=== PATIENT | female | born 1995 | race Caucasian/White ===

== ENCOUNTER 2016-09-07 20:42 | Emergency (ER) | payer MEDICAID, OTHER ==
[~2016-09-07] VITALS: Ht 162.6 cm; Wt 65.4 kg
[2016-09-07] MEDS ORDERED: METOCLOPRAMIDE 5 MG/ML, 2ML IVPush ONE (21:30)
[2016-09-07] MEDS ORDERED: SODIUM CHLORIDE 0.9% 1,000ML IVBOLUS ONE (21:30)
[2016-09-07] MEDS ORDERED: DIPHENHYDRAMINE 50 MG/ML, 1ML IVPush ONE (21:30)
[2016-09-07] MEDS ORDERED: METOCLOPRAMIDE 5 MG/ML, 2ML ONE (21:34)
[2016-09-07] MEDS ORDERED: DIPHENHYDRAMINE 50 MG/ML, 1ML ONE (21:35)
[2016-09-07 22:11] LABS: PATH.CAST-FLAG NOT PRESENT; SPERM-FLAG NOT PRESENT; SRC-FLAG NOT PRESENT; XTAL-FLAG NOT PRESENT; YLC-FLAG NOT PRESENT
[2016-09-07] MEDS ORDERED: CEFTRIAXONE PMX 1GM/50ML 50 ML IV ONE (23:00)
[2016-09-07] MEDS ORDERED: CEFTRIAXONE PMX 1GM/50ML 50 ML ONE (23:01)
[2016-09-07] MEDS ORDERED: morphine SULFATE 10 MG/ML, 1ML IVPush ONE (23:30)
[2016-09-07] MEDS ORDERED: MORPHINE SULFATE 4 MG/ML, 1ML ONE (23:36)
[2016-09-08 01:23] VITALS: BP 110/71
== END 2016-09-08 01:25 | disposition home or self-care (01) ==
LOC: ED 23:17
DX: O99.352 Diseases of the nervous system complicating pregnancy, second trimester (principal); G43.009 Migraine without aura, not intractable, without status migrainosus; O23.12 Infections of bladder in pregnancy, second trimester; Z3A.17 17 weeks gestation of pregnancy
CPT/HCPCS: 81001; 87077; 87086; 87186; 96361; 96365; 96366; 96375; 99285; J0696; J1200; J2270; J2765; J7030

== ENCOUNTER 2016-11-02 16:37 | Emergency (ER) | payer OTHER ==
[~2016-11-02] VITALS: Ht 162.6 cm; Wt 68.2 kg
[2016-11-02 16:56] VITALS: BP 118/77
[2016-11-02] MEDS ORDERED: ACETAMINOPHEN 325 MG TABLET ONE (17:13)
[2016-11-02] MEDS ORDERED: ACETAMINOPHEN 325 MG TABLET PO ONE (17:30)
[2016-11-02] MEDS ORDERED: KETOROLAC 30 MG/1 ML IM ONE (17:30)
== END 2016-11-02 18:28 | disposition home or self-care (01) ==
LOC: ED 17:47
DX: O26.892 Other specified pregnancy related conditions, second trimester (principal); M54.42 Lumbago with sciatica, left side; Z88.5 Allergy status to narcotic agent; Z88.1 Allergy status to other antibiotic agents; Z3A.25 25 weeks gestation of pregnancy
CPT/HCPCS: 81001; 87086; 99284

== ENCOUNTER 2016-11-13 23:01 | Outpatient (CLI) | payer OTHER ==
[~2016-11-13] VITALS: Ht 162.6 cm; Wt 69.0 kg
== END 2016-11-14 01:10 | disposition home or self-care (01) ==
LOC: LDOP 23:01
PROVIDERS: ATTEND Student in an Organized Health Care Education/Training Program
DX: O26.892 Other specified pregnancy related conditions, second trimester (principal); O99.342 Other mental disorders complicating pregnancy, second trimester; F32.9 Major depressive disorder, single episode, unspecified; R10.9 Unspecified abdominal pain; M54.9 Dorsalgia, unspecified; Z3A.27 27 weeks gestation of pregnancy
CPT/HCPCS: 36415; 59025; 81003; 82731; 87086; 99211; G0463

== ENCOUNTER 2016-12-12 14:55 | Outpatient (CLI) | payer OTHER ==
[~2016-12-12] VITALS: Ht 162.6 cm; Wt 71.4 kg
[2016-12-12 15:45] VITALS: BP 128/78
[2016-12-12] MEDS ORDERED: TERBUTALINE 1 MG/ML, 1ML ONE (17:44)
[2016-12-12] MEDS ORDERED: TERBUTALINE 1 MG/ML, 1ML SQ ONE (18:00)
== END 2016-12-12 18:15 | disposition home or self-care (01) ==
LOC: LDOP 14:55
PROVIDERS: ATTEND Obstetrics & Gynecology
DX: O26.893 Other specified pregnancy related conditions, third trimester (principal); O99.343 Other mental disorders complicating pregnancy, third trimester; F32.9 Major depressive disorder, single episode, unspecified; R10.9 Unspecified abdominal pain; Z3A.30 30 weeks gestation of pregnancy
CPT/HCPCS: 36415; 59025; 81003; 82731; 96372; 99211; J3105; 87086; G0463

== ENCOUNTER 2018-04-25 21:57 | Emergency (ER) | payer OTHER ==
[~2018-04-25] VITALS: Ht 162.6 cm; Wt 63.9 kg
[~2018-04-25 21:57] MED LIST: IRON; PRENATAL VITAMIN; SENN1TAB67 PO
[2018-04-25 22:31] LABS: BASOPHILS # (AUTO) 0.04 x10^3/uL (0-0.1); BASOPHILS % (AUTO) 1 % (0-1); EOSINOPHILS # (AUTO) 0.07 x10^3/uL (0-0.4); EOSINOPHILS % (AUTO) 1 % (1-7); LYMPHOCYTES # (AUTO) 1.69 x10^3/uL (1-3.4); LYMPHOCYTES % (AUTO) 23 % (22-44); MD NO; MEAN CORPUSCULAR HEMOGLOBIN 29.5 pg (27.0-34.8); MEAN CORPUSCULAR HGB CONC 34.1 g/dL (32.4-35.8); MEAN CORPUSCULAR VOLUME 86.4 fL (80-100); MEAN PLATELET VOLUME 8.3 fL (7.4-10.4); MONOCYTES # (AUTO) 0.42 x10^3/uL (0.2-0.8); MONOCYTES % (AUTO) 6 % (2-9); NEUTROPHILS # (AUTO) 5.18 x10^3/uL (1.8-6.8); NEUTROPHILS % (AUTO) 70 % (42-75); PLATELET COUNT 349 x10^3/uL (130-400); RED BLOOD COUNT 4.59 x10^6/uL (3.82-5.3); RED CELL DISTRIBUTION WIDTH 14.1 % (9.6-15.2)
[2018-04-25 22:37] LABS: ALANINE AMINOTRANSFERASE 20 U/L (12-78); ALBUMIN 4.4 g/dL (3.4-5.0); ANION GAP 5 mmol/L (5-15); CHLORIDE 108 mmol/L (98-107); CREATININE 0.74 mg/dL (0.55-1.02)
[2018-04-25 22:42] LABS: ALKALINE PHOSPHATASE 85 U/L (45-117); BILIRUBIN,TOTAL 0.6 mg/dL (0.2-1.0); TOTAL PROTEIN 8.5 g/dL (6.4-8.2)
--- NOTE | 2018-04-25 22:59 | NUR ---
PT IN [place].
--- NOTE | 2018-04-25 23:52 | NUR ---
PT HERE FOR INCREASING ABD PAIN. PT HAS HX OF OVARIAN CYSTS. PAIN HAS BEEN CONSTANT FOR 2 DAYS 08/11. AT BEDSIDE, UA SENT TO LAB.
[2018-04-25 23:55] LABS: MICROSCOPIC AUTO
[2018-04-26] LABS: CULTURE INDICATED? YES
[2018-04-26] MEDS ORDERED: ONDANSETRON ODT 4 MG PO ONE
[2018-04-26] MEDS ORDERED: KETOROLAC 30 MG/1 ML IM ONE
[2018-04-26] MEDS ORDERED: HYDROcodone/APAP 5/325 TABLET PO ONE
[2018-04-26] MEDS ORDERED: ONDANSETRON ODT 4 MG ONE (00:01)
[2018-04-26] MEDS ORDERED: KETOROLAC 30 MG/1 ML ONE (00:01)
[2018-04-26] MEDS ORDERED: HYDROcodone/APAP 5/325 TABLET ONE (00:02)
--- NOTE | 2018-04-26 00:10 | NUR ---
PT MEDICATED FOR PAIN. VSS. CALL LIGHT IN REACH
[2018-04-26 00:11] VITALS: BP 126/63
--- NOTE | 2018-04-26 00:45 | NUR ---
Patient given discharge instructions and they have confirmed that they understand the instructions. Patient ambulatory with steady gait.
== END 2018-04-26 00:47 | disposition home or self-care (01) ==
LOC: ED 23:08
DX: N30.01 Acute cystitis with hematuria (principal); N83.291 Other ovarian cyst, right side; N93.8 Other specified abnormal uterine and vaginal bleeding; Z88.5 Allergy status to narcotic agent; Z88.6 Allergy status to analgesic agent
CPT/HCPCS: 36415; 76830; 80053; 81001; 84703; 85025; 87086; 96372; 99284; J1885; Q0162

== ENCOUNTER 2018-05-12 07:57 | Outpatient (CLI) | payer OTHER ==
[2018-05-12] MEDS ORDERED: ELAG150T PO (08:24)
[2018-05-12] MEDS ORDERED: ALBU8.5H8 INH (08:34)
== END 2018-05-12 23:59 | disposition home or self-care (01) ==
LOC: STAR 07:57
PROVIDERS: ATTEND Obstetrics & Gynecology
DX: Z02.9 Encounter for administrative examinations, unspecified (principal)

== ENCOUNTER 2018-05-16 11:05 | Day surgery (SDC) | payer OTHER ==
[~2018-05-16] VITALS: Ht 162.6 cm; Wt 65.0 kg
[~2018-05-16 11:05] MED LIST changes: +ALBU8.5H8 INH; +BUPIVACAINE/PF 0.25% ONE; +ELAG150T PO; +EPINEPHRINE 1 MG/ML, 1ML ONE
[2018-05-16] MEDS ORDERED: LACTATED RINGERS 1,000 ML IV SCH (11:37)
[2018-05-16 12:00] VITALS: BP 133/80
[2018-05-16 12:20] LABS: HCG UR SG 1.021 (1.003-1.030)
[2018-05-16] MEDS ORDERED: MIDAZOLAM 1 MG/ML, 2ML ONE (12:47)
[2018-05-16] MEDS ORDERED: FENTANYL PF 250 MCG/5ML ONE (12:48)
[2018-05-16] MEDS ORDERED: GABAPENTIN 300 MG CAPSULE PO ONE (13:30)
[2018-05-16] MEDS ORDERED: ACETAMINOPHEN 500 MG TABLET PO ONE (13:30)
[2018-05-16] MEDS ORDERED: FAMOTIDINE 20 MG TABLET PO ONE (13:30)
[2018-05-16] MEDS ORDERED: OxyconTIN ER 10 MG TAB.ER PO ONE (13:30)
[2018-05-16] MEDS ORDERED: CEFAZOLIN 1,000 MG ONE (13:34)
[2018-05-16] MEDS ORDERED: ROCURONIUM 10MG/ML,5ML ONE (14:21)
[2018-05-16] MEDS ORDERED: PROPOFOL 10 MG/ML, 20ML ONE (14:21)
[2018-05-16] MEDS ORDERED: NEOSTIGMINE 1 MG/ML, 10ML ONE (14:21)
[2018-05-16] MEDS ORDERED: ONDANSETRON 2MG/ML, 2ML ONE (14:22)
[2018-05-16] MEDS ORDERED: DEXAMETHASONE 4 MG/ML, 1ML ONE (14:22)
[2018-05-16] MEDS ORDERED: MORPHINE SULFATE 4 MG/ML, 1ML IVPush PRN (14:30)
[2018-05-16] MEDS ORDERED: hydrALAzine 20 MG/ML, 1ML IV PRN (14:30)
[2018-05-16] MEDS ORDERED: MEPERIDINE/PF 25MG/0.5ML IVPush PRN (14:30)
[2018-05-16] MEDS ORDERED: PROMETHAZINE 25 MG/ML, 1ML IV PRN (14:30)
[2018-05-16] MEDS ORDERED: LABETALOL 5MG/ML, 20ML IV PRN (14:30)
[2018-05-16] MEDS ORDERED: ONDANSETRON 2MG/ML, 2ML IV PRN (14:30)
[2018-05-16] MEDS ORDERED: OXYcodone 5 MG/5 ML ORAL.SOL UDC PO PRN (14:30)
[2018-05-16] MEDS ORDERED: FENTANYL PF 100 MCG/2ML ONE (15:02)
[2018-05-16] MEDS: FENTANYL PF 100 MCG/2ML IV PRN ×2 (15:05→15:15)
[2018-05-16] MEDS ORDERED: MEPERIDINE/PF 25MG/ML,1ML ONE (15:06)
== END 2018-05-16 17:40 | disposition home or self-care (01) ==
LOC: OUT 11:05
PROVIDERS: ATTEND Obstetrics & Gynecology
DX: N83.292 Other ovarian cyst, left side (principal); N83.291 Other ovarian cyst, right side; N94.6 Dysmenorrhea, unspecified; F32.9 Major depressive disorder, single episode, unspecified; F41.9 Anxiety disorder, unspecified; J45.909 Unspecified asthma, uncomplicated; G43.909 Migraine, unspecified, not intractable, without status migrainosus; Z88.8 Allergy status to other drugs, medicaments and biological substances
CPT/HCPCS: 58662; 81025; 88305; J0171; J0690; J1100; J2175; J2250; J2405; J2704; J2710; J3010; J3490; J7120

== ENCOUNTER 2018-08-29 00:39 | Emergency (ER) | payer OTHER ==
[~2018-08-29 00:39] MED LIST changes: -BUPIVACAINE/PF 0.25% ONE; -EPINEPHRINE 1 MG/ML, 1ML ONE
--- NOTE | 2018-08-29 00:56 | NUR ---
assessment made. chart up for MD to see.
--- NOTE | 2018-08-29 00:58 | NUR ---
student at bedside.
[2018-08-29 01:20] LABS: MICROSCOPIC NOT IND
[2018-08-29 01:23] LABS: CULTURE INDICATED? NO
[2018-08-29 01:27] LABS: BASOPHILS # (AUTO) 0.03 x10^3/uL (0-0.1); BASOPHILS % (AUTO) 0 % (0-1); EOSINOPHILS # (AUTO) 0.06 x10^3/uL (0-0.4); EOSINOPHILS % (AUTO) 1 % (1-7); LYMPHOCYTES # (AUTO) 1.35 x10^3/uL (1-3.4); LYMPHOCYTES % (AUTO) 18 % (22-44); MD NO; MEAN CORPUSCULAR HEMOGLOBIN 29.4 pg (27.0-34.8); MEAN CORPUSCULAR HGB CONC 33.2 g/dL (32.4-35.8); MEAN CORPUSCULAR VOLUME 88.8 fL (80-100); MEAN PLATELET VOLUME 8.6 fL (7.4-10.4); MONOCYTES # (AUTO) 0.34 x10^3/uL (0.2-0.8); MONOCYTES % (AUTO) 4 % (2-9); NEUTROPHILS # (AUTO) 5.83 x10^3/uL (1.8-6.8); NEUTROPHILS % (AUTO) 77 % (42-75); PLATELET COUNT 291 x10^3/uL (130-400); RED BLOOD COUNT 4.57 x10^6/uL (3.82-5.3); RED CELL DISTRIBUTION WIDTH 13.4 % (9.6-15.2)
[2018-08-29] MEDS ORDERED: SODIUM CHLORIDE FLUSH 10ML SYR IVF ONE (01:30)
[2018-08-29 01:38] LABS: ALANINE AMINOTRANSFERASE 34 U/L (12-78); ALBUMIN 4.2 g/dL (3.4-5.0); ANION GAP 6 mmol/L (5-15); CHLORIDE 111 mmol/L (98-107); CREATININE 0.83 mg/dL (0.55-1.02)
[2018-08-29 01:43] LABS: ALKALINE PHOSPHATASE 70 U/L (45-117); BILIRUBIN,TOTAL 0.7 mg/dL (0.2-1.0); TOTAL PROTEIN 7.5 g/dL (6.4-8.2)
[2018-08-29] MEDS ORDERED: MORPHINE SULFATE 4 MG/ML, 1ML IVPush PRN (02:00)
[2018-08-29] MEDS ORDERED: ONDANSETRON 2MG/ML, 2ML IVPush ONE (02:00)
--- NOTE | 2018-08-29 02:01 | NUR ---
STARTED 20G IV IN RIGHT AC FOR CT EXAM. SENT PT BACK TO ER WITH IV INTACT.
[2018-08-29] MEDS ORDERED: OMNIPAQUE 350 MG/ML, 100ML BOTTLE ONE (02:03)
[2018-08-29] MEDS ORDERED: MORPHINE SULFATE 4 MG/ML, 1ML ONE (02:37)
[2018-08-29] MEDS ORDERED: ONDANSETRON 2MG/ML, 2ML ONE (02:37)
[2018-08-29 02:46] VITALS: BP 115/80
== END 2018-08-29 03:20 | disposition home or self-care (01) ==
LOC: ED 01:15
DX: R10.31 Right lower quadrant pain (principal); R11.0 Nausea; J45.909 Unspecified asthma, uncomplicated; Z88.5 Allergy status to narcotic agent; Z88.1 Allergy status to other antibiotic agents
CPT/HCPCS: 36415; 74177; 80053; 81003; 83690; 84703; 85025; 96374; 96375; 99284; J2270; J2405; Q9967

== ENCOUNTER 2019-03-24 22:43 | Emergency (ER) | payer MEDICAID, OTHER ==
[~2019-03-24] VITALS: Ht 162.6 cm; Wt 69.0 kg
[2019-03-24] MEDS ORDERED: SODIUM CHLORIDE 0.9% 1,000ML IVBOLUS ONE (23:30)
--- NOTE | 2019-03-24 23:31 | NUR ---
Pt alert and resting on gurney. Pt reports right sided abd pain. No vomiting. Pt reports feeling febrile this evening and took motrin. Pt reports she has nexplanon control and has been bleeding "nonstop" for three months. Pt ambulatory to restroom for urine sample.
[2019-03-24 23:41] LABS: BASOPHILS # (AUTO) 0.05 x10^3/uL (0-0.1); BASOPHILS % (AUTO) 1 % (0-1); EOSINOPHILS # (AUTO) 0.11 x10^3/uL (0-0.4); EOSINOPHILS % (AUTO) 1 % (1-7); LYMPHOCYTES # (AUTO) 1.98 x10^3/uL (1-3.4); LYMPHOCYTES % (AUTO) 25 % (22-44); MD NO; MEAN CORPUSCULAR HEMOGLOBIN 29.2 pg (27.0-34.8); MEAN CORPUSCULAR HGB CONC 33.4 g/dL (32.4-35.8); MEAN CORPUSCULAR VOLUME 87.3 fL (80-100); MEAN PLATELET VOLUME 8.6 fL (7.4-10.4); MONOCYTES # (AUTO) 0.39 x10^3/uL (0.2-0.8); MONOCYTES % (AUTO) 5 % (2-9); NEUTROPHILS # (AUTO) 5.29 x10^3/uL (1.8-6.8); NEUTROPHILS % (AUTO) 68 % (42-75); PLATELET COUNT 310 x10^3/uL (130-400); RED BLOOD COUNT 4.68 x10^6/uL (3.82-5.3); RED CELL DISTRIBUTION WIDTH 13.8 % (9.6-15.2)
--- NOTE | 2019-03-24 23:48 | NUR ---
Labs drawn. PIV placed. Pt medicated per MAY. Urine sent. Pt on pulse ox/HR monitor. Call light within reach.
[2019-03-24 23:55] LABS: ALANINE AMINOTRANSFERASE 23 U/L (12-78); ALBUMIN 4.2 g/dL (3.4-5.0); ANION GAP 4 mmol/L (5-15); CHLORIDE 109 mmol/L (98-107); CREATININE 0.67 mg/dL (0.55-1.02)
[2019-03-24 23:57] LABS: MICROSCOPIC NOT IND
[2019-03-24 23:59] LABS: CULTURE INDICATED? NO
[2019-03-24 23:59] LABS: ALKALINE PHOSPHATASE 65 U/L (45-117); BILIRUBIN,TOTAL 0.7 mg/dL (0.2-1.0); TOTAL PROTEIN 7.5 g/dL (6.4-8.2)
[2019-03-25 00:36] VITALS: BP 111/61
--- NOTE | 2019-03-25 01:14 | NUR ---
Pt alert and resting on gurney at time of d/c. NAD. Pt educated on home care, follow-up and S/SX to return. Pt VU. Pt ambulated out of ER.
== END 2019-03-25 01:16 | disposition home or self-care (01) ==
LOC: ED 03-25 00:25
DX: R10.31 Right lower quadrant pain (principal); R55 Syncope and collapse; J45.909 Unspecified asthma, uncomplicated
CPT/HCPCS: 36415; 80053; 81003; 84703; 85025; 93005; 99284; J7030

== ENCOUNTER → 2020-05-24 | Outpatient (CLI) | payer MEDICAID ==
[~2020-05-24] MED LIST changes: +CITA20TA6 PO; +ETON68IM3 IMPLANT; +MULT-334 PO; +[UNRECOGNIZED DRUG - MIXTURE] PO
== END | disposition home or self-care (01) ==
LOC: STAR 07:58
PROVIDERS: ATTEND Obstetrics & Gynecology Female Pelvic Medicine and Reconstructive Surgery
DX: Z20.822 Contact with and (suspected) exposure to COVID-19 (principal); R10.2 Pelvic and perineal pain; N94.6 Dysmenorrhea, unspecified; N94.10 Unspecified dyspareunia
CPT/HCPCS: U0003

== ENCOUNTER 2020-05-30 13:13 | Day surgery (SDC) | payer MEDICAID ==
[~2020-05-30] VITALS: Ht 162.6 cm; Wt 74.3 kg
[~2020-05-30 13:13] MED LIST changes: +BUPIVACAINE/PF 0.25% ONE; +EPINEPHRINE 1 MG/ML, 1ML ONE
[2020-05-30] MEDS ORDERED: CHLORHEXIDINE 15 ML UDC ONE (13:27)
[2020-05-30 13:30] LABS: HCG UR SG 1.026 (1.003-1.030)
[2020-05-30] MEDS ORDERED: CHLORHEXIDINE 15 ML UDC PO ONE (13:30)
[2020-05-30] MEDS ORDERED: LACTATED RINGERS 1,000 ML IV SCH (13:30)
[2020-05-30 13:32] VITALS: BP 132/83
[2020-05-30] MEDS ORDERED: ONDANSETRON ODT 4 MG ONE (13:46)
[2020-05-30] MEDS ORDERED: ONDANSETRON 4 MG TABLET PO ONE (14:00)
[2020-05-30] MEDS ORDERED: MIDAZOLAM 1 MG/ML, 2ML ONE (14:11)
[2020-05-30] MEDS ORDERED: FENTANYL PF 250 MCG/5ML ONE (14:12)
[2020-05-30] MEDS ORDERED: PROPOFOL 10 MG/ML, 20ML ONE (14:15)
[2020-05-30] MEDS ORDERED: DEXAMETHASONE 4 MG/ML, 1ML ONE (14:15)
[2020-05-30] MEDS ORDERED: ONDANSETRON 2MG/ML, 2ML ONE (14:15)
[2020-05-30] MEDS ORDERED: ROCURONIUM 10MG/ML,5ML ONE (14:15)
[2020-05-30] MEDS ORDERED: CEFAZOLIN 1,000 MG ONE (14:15)
[2020-05-30] MEDS ORDERED: SUGAMMADEX 200 MG/2 ML IVPush ONE (14:43)
[2020-05-30] MEDS ORDERED: ONDANSETRON 2MG/ML, 2ML IVPush PRN (15:00)
[2020-05-30] MEDS ORDERED: hydrALAzine 20 MG/ML, 1ML IV PRN (15:00)
[2020-05-30] MEDS ORDERED: EPHEDRINE 50 MG/ML, 1ML IVPush PRN (15:00)
[2020-05-30] MEDS ORDERED: morphine SULFATE 10 MG/ML, 1ML IVPush PRN (15:00)
[2020-05-30] MEDS ORDERED: ACETAMINOPHEN 325 MG TABLET PO PRN (15:00)
[2020-05-30] MEDS ORDERED: DIPHENHYDRAMINE 50 MG/ML, 1ML IVPush PRN ×2 (15:00)
[2020-05-30] MEDS ORDERED: DIAZEPAM 5 MG/ML, 2ML IVPush PRN (15:00)
[2020-05-30] MEDS ORDERED: PROMETHAZINE 12.5 MG SUPP PR PRN (15:00)
[2020-05-30] MEDS ORDERED: MIDAZOLAM 1 MG/ML, 2ML IV PRN (15:00)
[2020-05-30] MEDS ORDERED: MEPERIDINE/PF 25MG/0.5ML IVPush PRN (15:00)
[2020-05-30] MEDS ORDERED: ALBUTEROL SULFATE 2.5 MG/3 ML NPPB PRN (15:00)
[2020-05-30] MEDS ORDERED: LABETALOL 5MG/ML, 20ML IV PRN (15:00)
[2020-05-30] MEDS ORDERED: PROMETHAZINE 25 MG/ML, 1ML IVPush PRN (15:00)
[2020-05-30] MEDS ORDERED: KETOROLAC 30 MG/1 ML ONE (15:05)
[2020-05-30] MEDS ORDERED: FENTANYL PF 100 MCG/2ML ONE (15:05)
[2020-05-30] MEDS: FENTANYL PF 100 MCG/2ML IV PRN ×2 (15:08→15:27)
[2020-05-30] MEDS ORDERED: OXYcodone 5 MG/5 ML ORAL.SOL UDC ONE (15:16)
[2020-05-30] MEDS ORDERED: ACETAMINOPHEN 650 MG/20.3 ML UDC ONE (15:16)
[2020-05-30] MEDS: OXYcodone 5 MG/5 ML ORAL.SOL UDC PO PRN ×2 (15:18→16:57)
[2020-05-30] MEDS ORDERED: KETOROLAC 30 MG/1 ML IVPush PRN (15:30)
== END 2020-05-30 17:30 | disposition home or self-care (01) ==
LOC: OR 13:13
PROVIDERS: ATTEND Obstetrics & Gynecology Female Pelvic Medicine and Reconstructive Surgery
DX: N80.3 Endometriosis of pelvic peritoneum (principal); N94.6 Dysmenorrhea, unspecified; N94.10 Unspecified dyspareunia; G43.909 Migraine, unspecified, not intractable, without status migrainosus; J45.909 Unspecified asthma, uncomplicated; Z88.1 Allergy status to other antibiotic agents; Z88.5 Allergy status to narcotic agent; Z72.89 Other problems related to lifestyle; Z98.890 Other specified postprocedural states; Z79.899 Other long term (current) drug therapy
CPT/HCPCS: 58662; 81025; J0171; J0690; J1100; J1885; J2250; J2405; J2704; J3010; J7120; Q0162